=== PATIENT | male | born 1995 | race Caucasian/White ===

== ENCOUNTER 2016-11-03 01:30 | Emergency (ER) | payer OTHER ==
[2016-11-03 01:37] VITALS: BP 126/78
[2016-11-03] MEDS ORDERED: predniSONE 20 MG TABLET PO STA (02:07)
--- NOTE | 2016-11-03 02:11 | ED Physician Documentation ---
History of Present Illness - Stated complaint Stated Complaint: RASH - Chief complaint Chief Complaint: Wound - Additonal information Additional information: hx from pt 20 male [place] rash for several weeks, worse last 6 days to L antecup and popliteal region and now chest and back of neck too itches and carney othrwise well no fever cough NVD etc no travel has hx nut allergies and eczema as a child tried to make an appt with [facility] but could not be seen for almost a month and he is due to deploy soon Review of Systems Constitutional: denies: Fever, Chills Throat: denies: Sore throat Respiratory: denies: Dyspnea GI: denies: Vomiting Skin: reports: Rash PD PAST MEDICAL HISTORY - Past Medical History Past Medical History: No - Past Surgical History Past Surgical History: No - Present Medications Home Medications: Ambulatory Orders Medication Instructions Recorded Confirmed Triamcinolone 0.1% Oint [Kenalog 1 applic TOP BID #50 g 11/03/16 0.1% Oint] - Allergies Allergies/Adverse Reactions: Allergies Allergy/AdvReac Type Severity Reaction Status Date / Time erythromycin ethylsuccinate * Allergy Unknown Verified 11/03/16 01:34 [From Pediazole] sulfisoxazole acetyl * Allergy Unknown Verified 11/03/16 01:34 [From Pediazole] - Social History Does the pt smoke?: No Smoking Status: Never smoker Does the pt drink ETOH?: No - Immunizations Immunizations are current?: Yes - POLST Patient has POLST: No PD ED PE NORMAL - Vitals Vital signs reviewed: Yes - General General: Alert and oriented X 3 - HEENT HEENT: Atraumatic, Moist mucous membranes. No: Pharynx benign (small exudate R tonsil but no erythema, no oral lesions) - Neck Neck: Supple, no meningeal sign - Cardiac Cardiac: RRR - Respiratory Respiratory: No respiratory distress, Clear bilaterally - Abdomen Abdomen: Soft, Non tender - Extremities Extremities: Other (red scalinf rash worst in L AC region with cracking and fissures, smaller similar patches to chest and neck of neck) Results - Vitals Vitals: Vital Signs - 24 hr 11/03/16 01:34 Temperature 36.6 C Heart Rate 73 Respiratory 18 Rate Blood Pressure 126/78 O2 Saturation 99 Oxygen O2 Source Room air - Labs Labs: Laboratory Tests 11/03/16 02:05 Group A Strep Rapid Negative PD MEDICAL DECISION MAKING - ED course ED course: most c/w eczema, considered fungal as well but large patch to AC region is very typical of eczema will tx with steroids and refer to derm locally and hopefully pt will be approved by [facility] to be seen before he deploys Departure - Departure Disposition: Home, Self Care Condition: Good Instructions: ED Dermatitis Atopic Eczema Follow-Up: [facility] [Provider Group] [facility] [Provider Group] Prescriptions: Triamcinolone 0.1% Oint [Kenalog 0.1% Oint] 1 applic TOP BID #50 g Comments: The dose of steroid and antihistamine we gave you tonight should get some of the burning and itching under control. The I have prescribed a steroid cream for you to apply to the areas with rash It would be best if you were seen by a clinical recruiter for a recheck and further recommendations before you depbest - I suggest [facility] in [place] but you will have to get an approval from [facility]
[2016-11-03] MEDS ORDERED: predniSONE 20 MG TABLET ONE (02:14)
[2016-11-03] MEDS ORDERED: LORATADINE 10 MG TABLET PO STA (02:15)
[2016-11-03] MEDS ORDERED: LORATADINE 10 MG TABLET ONE (02:21)
[2016-11-03 02:28] LABS: RAPID STREP SCREEN REAGENT QC YELLOW (YELLOW)
== END 2016-11-03 02:53 | disposition home or self-care (01) ==
LOC: ED 01:30
DX: L30.9 Dermatitis, unspecified (principal)
CPT/HCPCS: 87070; 87430; 99283; A9270; J7512